=== PATIENT | female | born 1995 | race Caucasian/White ===

== ENCOUNTER 2022-07-08 11:19 | Outpatient (CLI) | payer BC, SELFPAY ==
--- NOTE | ~2022-07-08 | US_ITS ---
EXAMINATION: US pelvic complete w TV DATE: 07/08/2022 12:59 INDICATION: Irregular menstruation. TECHNIQUE: Multiple transabdominal and transvaginal sonographic images of the pelvis were obtained. COMPARISON: None. FINDINGS: TRANSABDOMINAL ULTRASOUND: The uterus measures 9.4 x 4.6 x 4.9 cm. There is no free fluid in the pelvis. TRANSVAGINAL ULTRASOUND: The endometrial complex measures 10 mm in thickness. The right ovary measures 4.0 x 3.5 x 2.4 cm. The left ovary measures 3.7 x 3.2 x 2.2 cm. There is normal vascular flow in the ovaries. IMPRESSION: 1. Normal pelvis. Reviewed, dictated and finalized at location A. [employer] IMPRESSION: 1. Normal pelvis.
[2022-07-08 11:48] LABS: Hematocrit 38.1 % (37.0-47.0); Hemoglobin 12.8 g/dL (12.0-15.0); Mean Corpuscular HGB Conc 33.6 g/dl (32-36); Mean Corpuscular Hemoglobin 29.2 pg (26-34); Mean Platelet Volume 9.6 fl (7.4-10.4); Platelet Count Result 302 k/mm3 (150-375); Red Blood Count 4.38 M/mm3 (4.2-5.4); Red Cell Distribution Width 12.2 % (11.5-14.5); White Blood Count 10.5 K/mm3 (4.5-10.0)
[2022-07-08 13:07] LABS: Beta HCG Quantitative < 2.39 mIU/ML
[2022-07-08 14:02] LABS: T4 Thyroxine 7.29 ug/dL (5.53-11.0)
== END 2022-07-08 11:20 | disposition home or self-care (01) ==
PROVIDERS: PCP Family Medicine; Visit Provider Nurse Practitioner
DX: N92.0 Excessive and frequent menstruation with regular cycle (principal)
CPT/HCPCS: 36415; 76830; 76856; 84436; 84439; 84443; 84702; 85027

== ENCOUNTER 2023-08-11 11:30 | Emergency (ER) | payer BC, SELFPAY ==
[2023-08-11 11:33] VITALS: BP 138/81; PULSE 81; RESP 18; TEMP 36; O2SAT 99
--- NOTE | 2023-08-11 13:06 | ED.GENADULT ---
HPI - General Adult General Chief complaint: Vaginal Bleeding <Mihaela Grimm PA-C - Last Filed: 08/11/23 13:12> Stated complaint: heavy bleeding <Mihaela Grimm PA-C - Last Filed: 08/11/23 13:12> Time Seen by Provider: 08/11/23 13:06 <Mihaela Grimm PA-C - Last Filed: 08/11/23 13:12> Focused HPI: Patient is a 28-year-old female who presents the ED with report of vaginal bleeding. Patient reports she has had abnormal cycles for the last year since obtaining a Nexplanon control implant. She had an episode of prolonged vaginal bleeding last June which she saw her OBGYN for, resolved with oral TXA. She developed bleeding around June 29 and has had persistent bleeding since then. Reports the bleeding has been heavier since last week, and she was going through a tampon every 30 minutes to 1 hour. She called her OBGYN office and was referred to the ED for further evaluation. Patient reported having mild dizziness and lightheadedness yesterday, denies any symptoms today. Reports intermittent lower abd cramping, denies significant pain. Denies syncope. Denies fevers. Denies urinary complaints. GENERAL: Well-appearing, morbidly obese with BMI of 43.1, and in no acute distress. HEAD: Normocephalic, atraumatic. CHEST: Clear to auscultation. ?No respiratory distress. HEART: Regular rate and rhythm.? NEURO: ?Alert and oriented x3. Patient screened in triage and initial orders placed.? ?Additional care and disposition to be based upon?diagnostic testing and treatment. <Mihaela Grimm PA-C - Last Filed: 08/11/23 13:12> Related Data Home medications: Home Medications Medication Instructions Recorded Confirmed etonogestrel 68 mg subdermal 1 implant subdermal ONCE 06/15/19 04/27/23 implant (Nexplanon) spironolactone 100 mg tablet 100 mg PO DAILY 11/11/22 04/27/23 <GAYLE Menchaca Last Filed: 08/11/23 13:12> Allergies/adverse reactions: Allergies Allergy/AdvReac Type Severity Reaction Status Date / Time No Known Allergies Allergy Verified 04/27/23 09:28 <Mihaela Grimm PA-C - Last Filed: 08/11/23 13:12> Review of Systems Review of Systems: All systems are reviewed and are negative unless stated otherwise in the HPI. <Reena Patel MD - Last Filed: 08/11/23 15:12> PMFSH Family History Family History: Family History Father Diabetes mellitus Hypertension <Mihaela Grimm PA-C - Last Filed: 08/11/23 13:12> Social History Social History: Social History Smoking status: Never smoker Second hand tobacco smoke exposure: No Alcohol intake: current Drinks per week: 2 Alcohol use details: socially Substance use: never Substance use type: does not use Living arrangements: with family Occupation/Education: occupation Gender identity (if verbalized by the patient): Female Sexual Orientation (if Verbalized by the Patient): Straight or Heterosexual <Mihaela Grimm PA-C - Last Filed: 08/11/23 13:12> Comments Patient denies any significant past medical or surgical history. <Reena Patel MD - Last Filed: 08/11/23 15:12> Exam Narrative: General: Alert, awake, afebrile, in no acute distress. HEENT: PERRL, no rhinorrhea, no post nasal drip, oropharynx clear. Neck: Trachea midline, no JVD, no lymphadenopathy. Cardiovascular: Regular rate and rhythm, no murmurs, rubs or gallops, no peripheral edema. Respiratory: Clear to auscultation bilaterally, no tachypnea, no wheezing, no rhonchi, no rubs, no respiratory distress. Abdomen: Soft, nontender, nondistended, no rebound, no guarding, no peritoneal signs. Musculoskeletal: No joint swelling or deformity, normal muscle tone. Skin: No rashes or petechia, no signs of infection. Psychiatric: Alert and oriented, normal behavior an
--- NOTE | 2023-08-11 13:19 | PC.NURSE ---
Pt states has Explanon implant, no menses for 1 year . States same situation as what brought into the ER happen 07/21.
[2023-08-11 13:27] LABS: Basophils Absolute Auto 0.1 K/mm3 (0.0-0.1); Basophils Percent Auto 0.5 % (0.2-1.2); Eosinophils Absolute Auto 0.1 K/mm3 (0-0.3); Eosinophils Percent Auto 0.8 % (0-4.4); Hematocrit 40.4 % (37.0-47.0); Hemoglobin 13.2 g/dL (12.0-15.0); Immature Granulocyte Absolute 0.02 K/mm3 (0.00-0.031); Immature Granulocyte Percent A 0.2 % (0-0.5); Lymphocytes Absolute Auto 3.65 K/mm3 (0.9-3.2); Lymphocytes Percent Auto 34.2 % (18.3-44.2); Mean Corpuscular HGB Conc 32.7 g/dl (32-36); Mean Corpuscular Volume 88.8 fl (80-100); Mean Platelet Volume 10.3 fl (7.4-10.4); Monocytes Absolute Auto 0.5 K/mm3 (0.1-0.6); Monocytes Percent Auto 4.8 % (2.6-8.5); Neutrophils Absolute Auto 6.3 K/mm3 (1.3-6.7); Neutrophils Percent Auto 59.5 % (45.5-73.1); Platelet Count Result 304 k/mm3 (150-375); Red Blood Count 4.55 M/mm3 (4.2-5.4); Red Cell Distribution Width 12.5 % (11.5-14.5); White Blood Count 10.7 K/mm3 (4.5-10.0)
[2023-08-11 13:41] LABS: Prothrombin Time 13.3 Seconds (11.1-14.7)
[2023-08-11 13:42] LABS: Partial Thromboplastin Time 26.9 SECONDS (22.3-36.8)
[2023-08-11 15:03] VITALS: BP 119/67; PULSE 84
[2023-08-11 15:05] VITALS: BP 118/74; PULSE 74
[2023-08-11 15:06] VITALS: BP 126/83; PULSE 82
[2023-08-11 15:10] VITALS: BP 126/83; PULSE 84; RESP 18; O2SAT 99
== END 2023-08-11 15:29 | disposition home or self-care (01) ==
PROVIDERS: Physician Assistant; Emergency Provider Emergency Medicine; PCP Family Medicine
DX: N93.8 Other specified abnormal uterine and vaginal bleeding (principal)
CPT/HCPCS: 36415; 85025; 85610; 85730; 86850; 86900; 86901; 99283